=== PATIENT | female | born 1950 | race Caucasian/White ===

== ENCOUNTER → 2023-09-24 17:45 | Outpatient (REF) | payer BC, MEDICARE, SELFPAY | LOC: RAD 17:45 | PROVIDERS: ATTENDING PHYSICIAN Physician Assistant | DX: M79.89 Other specified soft tissue disorders (principal); Z86.718 Personal history of other venous thrombosis and embolism; M25.562 Pain in left knee | CPT/HCPCS: 73564; 93971 ==

== ENCOUNTER → 2024-08-05 10:21 | Outpatient (REF) | payer OTHER, MEDICARE, SELFPAY | LOC: HWWDC 10:21 | PROVIDERS: ATTENDING PHYSICIAN Physician Assistant | DX: Z12.31 Encounter for screening mammogram for malignant neoplasm of breast (principal) | CPT/HCPCS: 77063; 77067 ==